=== PATIENT | female | born 1965 | race Caucasian/White ===

== ENCOUNTER 2017-09-23 10:05 | Outpatient (CLI) | payer MEDICAID ==
[~2017-09-23 10:05] MED LIST: BAC10T PO; CYCL-394 PO; NO HOME MEDS; ONDA4TAB12 PO
== END 2017-09-23 23:59 | disposition home or self-care (01) ==
LOC: RAD 10:05
PROVIDERS: ATTEND Nurse Practitioner
DX: R10.2 Pelvic and perineal pain (principal)
CPT/HCPCS: 76856

== ENCOUNTER 2018-09-24 00:45 | Emergency (ER) | payer MEDICAID ==
[~2018-09-24] VITALS: Ht 165.1 cm; Wt 63.1 kg
[2018-09-24 00:51] VITALS: BP 130/83
== END 2018-09-24 08:32 | disposition left against medical advice (07) ==
LOC: ER 00:46
DX: R10.9 Unspecified abdominal pain (principal); Z53.21 Procedure and treatment not carried out due to patient leaving prior to being seen by health care provider

== ENCOUNTER 2023-10-07 09:19 | Inpatient (IN) | payer MEDICAID ==
[~2023-10-07] VITALS: Ht 165.1 cm; Wt 76.8 kg
[2023-10-07 10:20] LABS: ALBUMIN 3.8 G/DL (3.4-5.0); ANION GAP 10 (8-16); BLOOD UREA NITROGEN 17 MG/DL (7-18); BUN/CREATININE RATIO 23.3 (10.0-20.0); CALCIUM 9.6 MG/DL (8.5-10.1); CHLORIDE 101 MMOL/L (99-107); CREATININE 0.73 MG/DL (0.40-0.90); GLUCOSE 395 MG/DL (70-104); POTASSIUM 3.9 MMOL/L (3.5-5.1); SODIUM 137 MMOL/L (135-145); TOTAL CARBON DIOXIDE 26.1 MMOL/L (24-32); eCRCL 75 ML/MIN; eGFR 82 ML/MIN
[2023-10-07 10:22] LABS: APTT 27 SECONDS (22-32)
[2023-10-07 10:36] LABS: INR 0.9 INR
[2023-10-07 10:42] LABS: BASOPHILS % (AUTO) 0.6 % (0-1); EOSINOPHILS # (AUTO) 0.2 X10'3 (0-0.9); EOSINOPHILS % (AUTO) 2.8 % (0-6); HEMATOCRIT 46.3 % (35.0-45.0); LYMPHOCYTES # (AUTO) 1.7 X10'3 (1.1-4.8); LYMPHOCYTES % (AUTO) 24.5 % (21-51); MEAN CORPUSCULAR HGB CONC 34.6 g/dL (33.0-36.5); MEAN CORPUSCULAR VOLUME 89.7 FL (78-98); MEAN PLATELET VOLUME 8.8 FL (7.4-10.4); MONOCYTES # (AUTO) 0.3 X10'3 (0-0.9); MONOCYTES % (AUTO) 4.6 % (2-12); NEUTROPHILS # (AUTO) 4.8 X10'3 (1.8-7.7); NEUTROPHILS % (AUTO) 67.5 % (42-75); PLATELET COUNT 195 X10'3 (140-440); RED BLOOD COUNT 5.17 X10'6 (4.20-5.60); RED CELL DISTRIBUTION WIDTH 13.9 % (11.5-14.5); WHITE BLOOD COUNT 7.1 X10'3 (4.5-11.0)
[2023-10-07] MEDS ORDERED: iohexol 350MG/ML 100ml bottle IV ONE (11:30)
[2023-10-07] MEDS ORDERED: magnesium 4gm in 100ml NS 100 ML IV PRN (12:25)
[2023-10-07] MEDS ORDERED: magnesium Cl slow-release 64mg tablet PO PRN (12:25)
[2023-10-07] MEDS ORDERED: magnesium hydroxide 30ml (MOM) UD suspension PO PRN (12:25)
[2023-10-07] MEDS ORDERED: magnesium 2GM in 50ml NS 50 ML IV PRN (12:25)
[2023-10-07] MEDS ORDERED: mag hydrox/Alum hydrox/simeth 30ml oral suspension PO PRN (12:25)
[2023-10-07] MEDS ORDERED: ondansetron/PF 4mg/2ml inj IV PRN (12:25)
[2023-10-07] MEDS ORDERED: potassium Cl 40MEQ/1/2NS 520ml 520 ML IV PRN (12:25)
[2023-10-07] MEDS ORDERED: potassium Cl 20 mEq SR tablet PO PRN ×2 (12:25)
[2023-10-07] MEDS ORDERED: acetaminophen 325mg tablet PO PRN (12:25)
[2023-10-07] MEDS: insulin regular, human 10 units/0.1 ml syringe IV ONE (12:34)
[2023-10-07] MEDS ORDERED: DEXTROSE 15 GM of carb/4 tabs (each vial/BOTTLE has 4 tablets) PO PRN ×2 (12:45)
[2023-10-07] MEDS ORDERED: dextrose 50%-water 50ml dispensing syringe IV PRN ×2 (12:45)
[2023-10-07] MEDS ORDERED: glucagon, human recombinant 1mg kit SUBCUT PRN (12:45)
[2023-10-07 13:05] LABS: BILIRUBIN,URINE NEGATIVE (Neg); CLARITY,URINE SLIGHTLY CLOUDY (Clear); COLOR,URINE YELLOW (Yellow); GLUCOSE, URINE >=1000 mg/dl (Neg); KETONES,URINE NEGATIVE (Neg); LEUKOCYTE ESTERASE ,URINE NEGATIVE (Neg); NITRITES, URINE NEGATIVE (Neg); OCCULT BLOOD,URINE NEGATIVE (Neg); PH,URINE 5.5 (4.8-8.0); PROTEIN,URINE NEGATIVE (Neg); UROBILINOGEN,URINE 0.2 E.U/dL (0.2-1.0)
[2023-10-07 13:10] LABS: UA COLLECTION TYPE CLN CATCH MIDSTREAM
[2023-10-07 13:11] LABS: BACTERIA,URINE 2+ /HPF (Neg); SQUAMOUS EPITHELIAL CELL,UR MANY /LPF (FEW); WBC,URINE 0-4 /HPF (0-4)
[2023-10-07 13:12] LABS: RBC,URINE 0-2 /HPF (0-2); YEAST FEW /HPF (NEGATIVE)
[2023-10-07] MEDS: normal saline 1000ml 1,000 ML IV SCH (13:18)
[2023-10-07 13:21] LABS: URINE AMPHETAMINE SCREEN POSITIVE (Neg); URINE BARBITUATE SCREEN NEGATIVE (Neg); URINE BENZODIAZEPINES SCREEN NEGATIVE (Neg); URINE CANNABINOID SCREEN POSITIVE (Neg); URINE COCAINE SCREEN NEGATIVE (Neg); URINE METHADONE SCREEN NEGATIVE (Neg); URINE OPIATE SCREEN NEGATIVE (Neg); URINE PHENCYCLIDINE SCREEN NEGATIVE (Neg)
[2023-10-07 16:20] VITALS: BP 118/84; PULSE 76; RESP 16; TEMP 98.2; O2SAT 95
[2023-10-07 18:00] VITALS: BP 122/82; PULSE 85; RESP 17; TEMP 97.9; O2SAT 97
[2023-10-07 20:00] VITALS: RESP 18; O2SAT 96
[2023-10-07] MEDS: K and/or MAG REPLACEMENT MC SCH (20:00)
[2023-10-07] MEDS: atorvastatin 20mg tablet PO SCH (21:54)
[2023-10-07] MEDS: enoxaparin 40mg/0.4ml syringe SQ SCH (21:54)
[2023-10-07 22:00] VITALS: BP 129/75; PULSE 78; RESP 18; TEMP 98.2; O2SAT 99
[2023-10-07] MEDS: insulin glargine (Lantus) pen - multi-dose SQ SCH (23:16)
[2023-10-07] MEDS: insulin Lispro (HumaLOG) vial - multi-dose SQ SCH (23:18)
[2023-10-08] VITALS (11 sets, daily range): BP systolic 107–113; BP diastolic 64–79; PULSE 62–91; RESP 16–18; TEMP 97.5–98.3; O2SAT 95–99
[2023-10-08] MEDS: aspirin 81mg, enteric-coated 1 TAB TABLET.DR PO SCH (07:45)
[2023-10-08] MEDS: nicotine 7mg patch - 24hr TD SCH (07:48)
[2023-10-08 08:03] LABS: BASOPHILS % (AUTO) 0.6 % (0-1); EOSINOPHILS # (AUTO) 0.2 X10'3 (0-0.9); EOSINOPHILS % (AUTO) 3.7 % (0-6); HEMATOCRIT 41.2 % (35.0-45.0); LYMPHOCYTES # (AUTO) 1.7 X10'3 (1.1-4.8); LYMPHOCYTES % (AUTO) 33.7 % (21-51); MEAN CORPUSCULAR HEMOGLOBIN 30.4 PG (27.0-31.0); MEAN CORPUSCULAR HGB CONC 34.1 g/dL (33.0-36.5); MEAN CORPUSCULAR VOLUME 89.3 FL (78-98); MEAN PLATELET VOLUME 8.5 FL (7.4-10.4); MONOCYTES # (AUTO) 0.3 X10'3 (0-0.9); MONOCYTES % (AUTO) 5.4 % (2-12); NEUTROPHILS # (AUTO) 2.9 X10'3 (1.8-7.7); NEUTROPHILS % (AUTO) 56.6 % (42-75); PLATELET COUNT 144 X10'3 (140-440); RED BLOOD COUNT 4.61 X10'6 (4.20-5.60); RED CELL DISTRIBUTION WIDTH 13.6 % (11.5-14.5); WHITE BLOOD COUNT 5.2 X10'3 (4.5-11.0)
[2023-10-08 08:19] LABS: ALANINE AMINOTRANSFERASE 25 U/L (12-78); ALBUMIN 3.1 G/DL (3.4-5.0); ALKALINE PHOSPHATASE 64 IU/L (46-116); ANION GAP 7 (8-16); ASPARTATE AMINO TRANSFERASE 9 U/L (10-37); BILIRUBIN,TOTAL 1.2 MG/DL (0.1-1.0); BLOOD UREA NITROGEN 16 MG/DL (7-18); BUN/CREATININE RATIO 26.2 (10.0-20.0); CALCIUM 8.8 MG/DL (8.5-10.1); CHLORIDE 104 MMOL/L (99-107); CHOL/HDL RATIO 7.2 (0.00-4.99); CHOLESTEROL 231 MG/DL (0-200); CREATININE 0.61 MG/DL (0.40-0.90); GLUCOSE 295 MG/DL (70-104); HDL CHOLESTEROL 32 MG/DL (35-60); LDL CHOLESTEROL 138 MG/DL (50-100); POTASSIUM 3.8 MMOL/L (3.5-5.1); SODIUM 136 MMOL/L (135-145); TOTAL CARBON DIOXIDE 25.1 MMOL/L (24-32); TOTAL PROTEIN 6.3 G/DL (6.4-8.2); TRIGLYCERIDES 231 MG/DL (20-135); eCRCL 89 ML/MIN; eGFR > 90 ML/MIN
[2023-10-08] MEDS: LORazepam 0.5 MG tablet PO PRN (11:51)
[2023-10-08] MEDS: atorvastatin 20mg tablet PO SCH (21:36)
[2023-10-09 03:00] VITALS: BP 114/81; PULSE 94; RESP 16; TEMP 97.9; O2SAT 99
[2023-10-09 06:00] VITALS: BP 98/63; PULSE 72; RESP 16; TEMP 98.3; O2SAT 96
[2023-10-09 07:48] LABS: BASOPHILS % (AUTO) 0.6 % (0-1); EOSINOPHILS # (AUTO) 0.1 X10'3 (0-0.9); EOSINOPHILS % (AUTO) 2.5 % (0-6); HEMATOCRIT 41.9 % (35.0-45.0); HEMOGLOBIN 14.6 g/dl (12.0-16.0); LYMPHOCYTES # (AUTO) 1.8 X10'3 (1.1-4.8); LYMPHOCYTES % (AUTO) 31.6 % (21-51); MEAN CORPUSCULAR HEMOGLOBIN 30.7 PG (27.0-31.0); MEAN CORPUSCULAR HGB CONC 34.9 g/dL (33.0-36.5); MEAN CORPUSCULAR VOLUME 88.1 FL (78-98); MEAN PLATELET VOLUME 8.4 FL (7.4-10.4); MONOCYTES # (AUTO) 0.3 X10'3 (0-0.9); MONOCYTES % (AUTO) 4.8 % (2-12); NEUTROPHILS # (AUTO) 3.5 X10'3 (1.8-7.7); NEUTROPHILS % (AUTO) 60.5 % (42-75); PLATELET COUNT 140 X10'3 (140-440); RED BLOOD COUNT 4.76 X10'6 (4.20-5.60); RED CELL DISTRIBUTION WIDTH 13.4 % (11.5-14.5); WHITE BLOOD COUNT 5.7 X10'3 (4.5-11.0)
[2023-10-09 08:00] VITALS: BP 98/63; PULSE 72; RESP 16; TEMP 98.3; O2SAT 96
[2023-10-09 08:00] LABS: ALANINE AMINOTRANSFERASE 25 U/L (12-78); ALBUMIN 3.2 G/DL (3.4-5.0); ALBUMIN/GLOBULIN RATIO 0.9 (1.1-1.5); ALKALINE PHOSPHATASE 61 IU/L (46-116); ANION GAP 9 (8-16); ASPARTATE AMINO TRANSFERASE 17 U/L (10-37); BILIRUBIN,TOTAL 1.2 MG/DL (0.1-1.0); BLOOD UREA NITROGEN 20 MG/DL (7-18); BUN/CREATININE RATIO 33.3 (10.0-20.0); CALCIUM 9.2 MG/DL (8.5-10.1); CHLORIDE 104 MMOL/L (99-107); GLUCOSE 216 MG/DL (70-104); POTASSIUM 3.6 MMOL/L (3.5-5.1); SODIUM 137 MMOL/L (135-145); TOTAL CARBON DIOXIDE 24.5 MMOL/L (24-32); TOTAL PROTEIN 6.7 G/DL (6.4-8.2); eCRCL 91 ML/MIN; eGFR > 90 ML/MIN
[2023-10-09 10:00] VITALS: BP 95/64; PULSE 89; RESP 18; TEMP 99; O2SAT 97
[2023-10-09 12:00] VITALS: BP 95/64; PULSE 89; RESP 18; TEMP 99; O2SAT 97
[2023-10-09] MEDS ORDERED: LANTUS SUBCUT (14:07)
[2023-10-09] MEDS ORDERED: ATOR20TA66 PO (14:07)
[2023-10-09] MEDS ORDERED: ASPI-1071 PO (14:07)
[2023-10-09] MEDS ORDERED: clopidogrel 75mg tablet PO SCH (20:00)
== END 2023-10-09 16:15 | disposition home or self-care (01) | DRG 45 ==
LOC: ER 09:19 → ED HOLD 12:31 → ORTHO 4S 16:38
PROVIDERS: ADMIT Internal Medicine; ATTEND Internal Medicine
PROC: B32T1ZZ Computerized Tomography (CT Scan) of Left Pulmonary Artery using Low Osmolar Contrast (ICD-10-PCS; principal; 2023-10-07)
PROC: B3201ZZ Computerized Tomography (CT Scan) of Thoracic Aorta using Low Osmolar Contrast (ICD-10-PCS; 2023-10-07)
PROC: B32S1ZZ Computerized Tomography (CT Scan) of Right Pulmonary Artery using Low Osmolar Contrast (ICD-10-PCS; 2023-10-07)
DX: I63.9 Cerebral infarction, unspecified (principal); E86.0 Dehydration; G81.94 Hemiplegia, unspecified affecting left nondominant side; E11.65 Type 2 diabetes mellitus with hyperglycemia; Z66 Do not resuscitate; R29.706 NIHSS score 6; F15.90 Other stimulant use, unspecified, uncomplicated; E78.00 Pure hypercholesterolemia, unspecified; F32.A Depression, unspecified; G89.29 Other chronic pain; F17.210 Nicotine dependence, cigarettes, uncomplicated; Z59.00 Homelessness unspecified; Z71.6 Tobacco abuse counseling
CPT/HCPCS: 36415; 70450; 70496; 70498; 70551; 71045; 80048; 80053; 80061; 80305; 81001; 82948; 83036; 85025; 85610; 85730; 87081; 93005; 93306; 97161; 97530; 99291; G0378; J1650; J1815; J3490; J7030; Q9967

== ENCOUNTER 2024-06-10 08:52 | Emergency (ER) | payer MEDICAID ==
[~2024-06-10] VITALS: Ht 165.1 cm; Wt 68.2 kg
[~2024-06-10 08:52] MED LIST changes: +ASPI-1071 PO; +ATOR20TA66 PO; -NO HOME MEDS; +ONDA-243 PO; -ONDA4TAB12 PO
[2024-06-10 09:51] LABS: BASOPHILS % (AUTO) 0.5 % (0-1); EOSINOPHILS # (AUTO) 0.1 X10'3 (0-0.9); EOSINOPHILS % (AUTO) 1.2 % (0-6); HEMATOCRIT 41.5 % (35.0-45.0); HEMOGLOBIN 14.2 g/dl (12.0-16.0); LYMPHOCYTES # (AUTO) 2.1 X10'3 (1.1-4.8); LYMPHOCYTES % (AUTO) 25.8 % (21-51); MEAN CORPUSCULAR HEMOGLOBIN 30.1 PG (27.0-31.0); MEAN CORPUSCULAR HGB CONC 34.2 g/dL (33.0-36.5); MEAN CORPUSCULAR VOLUME 87.9 FL (78-98); MEAN PLATELET VOLUME 7.7 FL (7.4-10.4); MONOCYTES # (AUTO) 0.5 X10'3 (0-0.9); MONOCYTES % (AUTO) 6.5 % (2-12); NEUTROPHILS # (AUTO) 5.3 X10'3 (1.8-7.7); PLATELET COUNT 205 X10'3 (140-440); RED BLOOD COUNT 4.72 X10'6 (4.20-5.60); RED CELL DISTRIBUTION WIDTH 13.6 % (11.5-14.5)
[2024-06-10 10:02] LABS: ALBUMIN 3.6 G/DL (3.4-5.0); ANION GAP 6 (8-16); BLOOD UREA NITROGEN 17 MG/DL (7-18); BUN/CREATININE RATIO 26.6 (10.0-20.0); CALCIUM 10.1 MG/DL (8.5-10.1); CHLORIDE 102 MMOL/L (99-107); CREATININE 0.64 MG/DL (0.40-0.90); GLUCOSE 237 MG/DL (70-104); POTASSIUM 4.1 MMOL/L (3.5-5.1); SODIUM 134 MMOL/L (135-145); TOTAL CARBON DIOXIDE 26.3 MMOL/L (24-32); eCRCL 84 ML/MIN; eGFR > 90 ML/MIN
[2024-06-10 10:09] LABS: APTT 24 SECONDS (22-32); PROTHROMBIN TIME 10.3 SECONDS (9.0-12.0)
[2024-06-10] MEDS ORDERED: QUET-1 PO (11:56)
[2024-06-10] MEDS: QUEtiapine 25mg tablet PO ONE (12:18)
[2024-06-10 12:21] VITALS: BP 141/91; PULSE 80; RESP 16; TEMP 97.5; O2SAT 95
== END 2024-06-10 12:22 | disposition home or self-care (01) ==
LOC: ER 08:53
DX: R20.0 Anesthesia of skin (principal); E78.00 Pure hypercholesterolemia, unspecified; E11.9 Type 2 diabetes mellitus without complications; F32.A Depression, unspecified; R79.1 Abnormal coagulation profile; Z79.82 Long term (current) use of aspirin; Z79.899 Other long term (current) drug therapy; Z98.890 Other specified postprocedural states
CPT/HCPCS: 36415; 70450; 71045; 80048; 82948; 85025; 85610; 85730; 93005; 99285

== ENCOUNTER 2025-01-16 14:47 | Emergency (ER) | payer MEDICAID ==
[~2025-01-16] VITALS: Ht 165.1 cm; Wt 70.0 kg
--- NOTE | 2025-01-16 14:58 | Physician Documentation ---
History of Present Illness ~ Chief Complaint: Heat Related Stated Complaint: HEAT STROKE Time Seen by MD: 14:51 Primary Medical Doctor: [facility] HPI This 59-year-old female who was brought to the emergency department per EMS after her sister called 911 because she reported that she was overheated after walking to her sister's house. On presentation, the patient does report some g eneralized abdominal pain, nausea, and reports reduced urine output today. Medication Reconciliation Allergies: Coded Allergies: No Known Allergies (Unverified , 01/16/25) Scheduled Aspirin (Ecotrin*), 1 TAB PO DAILY Atorvastatin Calcium (Atorvastatin Calcium), 40 MG PO HS Baclofen* (Lioresal*), 10 MG PO TID Cyclobenzaprine HCl (Cyclobenzaprine HCl), 10 MG PO TID PRN MUSCLE SPASM Scheduled PRN ONDANSETRON ODT 4mg tablet (Ondansetron Odt), 1 TABLET PO Q6H PRN for nausea/vomiting ONDANSETRON ODT 4mg tablet (Ondansetron Odt), 1 TAB PO Q6H PRN PRN for nausea/vomiting Past Medical History Past Medical History: High Cholesterol, Diabetes, Chronic Pain, Depression Past Surgical History: , orthopedic surgeries Alcohol Use: None Drug Use: none Lives with: Spouse Lives In: Home Occupation: disabled Review of Systems ROS As stated above in the HPI, otherwise all systems are reviewed and negative. Physical Exam Physical Exam General: Alert, no apparent distress. HEENT: PERRL, EOMI, no injection, moist mucous membranes. Neck: Full range of motion. Respiratory: Lungs clear, no respiratory distress. Chest: No accessory muscle use. Cardiovascular: Regular rate and rhythm, no murmurs. Gastrointestinal: Soft, mildly TTP throughout, nondistended. Bowels sounds present. Extremities: Normal range of motion, no deformity. Neurologic: Oriented x4. Psychiatric: Normal mood and affect. Skin: Normal color, warm and dry. No edema, no ecchymosis. Progress Results/Orders Results/Orders Orders - SILVIA DEAN NP Urinalysis, Cult If Indicated (01/16/25 14:52) Normal Saline 1000ml (Sodium Chloride 10 (01/16/25 15:45) Completed Orders - SILVIA DEAN NP Normal Saline 1000ml (Sodium Chloride 10 (01/16/25 14:55) Cbc/Diff (01/16/25 14:52) CMP (01/16/25 14:52) Ondansetron Inj. (Zofran 4mg/2ml Vial) (01/16/25 14:55) Medications Received in ER Medications (Trade) Dose Ordered Sig/Sarah Route PRN Reason Start Time Stop Time Status Last Admin Dose Admin Sodium Chloride 1,000 ml @ 1,000 mls/hr ONCE ONCE IV 01/16/25 14:55 01/16/25 15:54 DC 01/16/25 15:04 1,000 MLS/HR Sodium Chloride 1,000 ml @ 1,000 mls/hr ONCE ONCE IV 01/16/25 15:45 01/16/25 16:44 01/16/25 15:49 1,000 MLS/HR Vital Signs 01/16/25 01/16/25 14:52 15:20 Temp 99.3 Pulse 100 Resp 18 16 B/P (MAP) 117/68 Pulse Ox 99 Laboratory Tests Test 01/16/25 15:05 White Blood Count 7.3 Red Blood Count 4.76 Hemoglobin 14.5 Hematocrit 41.4 Mean Corpuscular Volume 87.1 Mean Corpuscular Hemoglobin 30.4 Mean Corpuscular Hemoglobin Concent 34.9 Red Cell Distribution Width 13.7 Platelet Count 194 Mean Platelet Volume 8.4 Neutrophils (%) (Auto) 46.5 Lymphocytes (%) (Auto) 41.2 Monocytes (%) (Auto) 6.7 Eosinophils (%) (Auto) 4.8 Basophils (%) (Auto) 0.8 Neutrophils # (Auto) 3.4 Lymphocytes # (Auto) 3.0 Monocytes # (Auto) 0.5 Eosinophils # (Auto) 0.4 Basophils # (Auto) 0.1 CBC Comment Sodium Level 143 Potassium Level 3.7 Chloride Level 107 Carbon Dioxide Level 27.4 Anion Gap 9 Blood Urea Nitrogen 17 Creatinine 0.81 Estimated GFR/1.73 m2 72 BUN/Creatinine Ratio 21.0 H Glucose Level 260 H Calcium Level 9.7 Total Bilirubin 1.4 H Aspartate Amino Transf (AST/SGOT) 24 Alanine Aminotransferase (ALT/SGPT) 44 Alkaline Phosphatase 91 Total Protein 7.8 Albumin 3.9 Globulin 3.9 Albumin/Globulin Ratio 1.0 L Chemistry Comments Medical Decision Making Differential Diagnosis 59-year-old female presented to the emergency department per ambulance with concerns for being overheated after walking in the 105+ degree heat. She was hydrated with 2 L of normal saline and given ondansetron 4 mg IV for nausea. Her labs were all within normal limits. She then felt much improved and was appropriate for discharge home. She is encouraged to follow up with the primary care provider, stay: Hydrated, return if worse. She will be given ondansetron for use at home. Departure Time of Disposition: 15:55 Disposition: HOME / SELF CARE / HOMELESS Impression: Primary Impression: Heat exhaustion Condition: Stable Discharge Instructions: Heat Illness Additional Instructions: You were hydrated and given nausea medication in the ER. Your labs were all within normal limits. Stay cool and hydrated. Return if worse. Referrals: NO PRIMARY CARE PROVIDER (PCP) Prescriptions ONDANSETRON ODT 4mg tablet (ONDANSETRON ODT) 4 Mg Tab.rapdis 1 TAB PO Q6H PRN PRN for nausea/vomiting for 4 Days, #16 TAB 0 Refills Prov: SILVIA DEAN NP 01/16/25 Education Educated: Patient Educated regarding: diagnosis, treatment, prognosis, need for follow up Signature Scribe Signature: no scribe Attestation: The note accurately reflects work and decisions made by me.Silvia Castro NP 01/16/25 16:02 SILVIA DEAN NP Jan 16, 2025 14:58
[2025-01-16] MEDS: normal saline 1000ml 1,000 ML IV ONE ×2 (15:04→15:49)
[2025-01-16] MEDS: ondansetron/PF 4mg/2ml inj IV ONE (15:05)
[2025-01-16 15:38] LABS: ALANINE AMINOTRANSFERASE 44 U/L (12-78); ALBUMIN 3.9 G/DL (3.4-5.0); ALKALINE PHOSPHATASE 91 IU/L (46-116); ANION GAP 9 (8-16); ASPARTATE AMINO TRANSFERASE 24 U/L (10-37); BILIRUBIN,TOTAL 1.4 MG/DL (0.1-1.0); BLOOD UREA NITROGEN 17 MG/DL (7-18); CALCIUM 9.7 MG/DL (8.5-10.1); CHLORIDE 107 MMOL/L (99-107); CREATININE 0.81 MG/DL (0.40-0.90); GLUCOSE 260 MG/DL (70-104); POTASSIUM 3.7 MMOL/L (3.5-5.1); SODIUM 143 MMOL/L (135-145); TOTAL CARBON DIOXIDE 27.4 MMOL/L (24-32); TOTAL PROTEIN 7.8 G/DL (6.4-8.2); eCRCL 66 ML/MIN; eGFR 72 ML/MIN
[2025-01-16 15:39] LABS: BASOPHILS # (AUTO) 0.1 X10'3 (0-0.2); BASOPHILS % (AUTO) 0.8 % (0-1); EOSINOPHILS # (AUTO) 0.4 X10'3 (0-0.9); EOSINOPHILS % (AUTO) 4.8 % (0-6); HEMATOCRIT 41.4 % (35.0-45.0); HEMOGLOBIN 14.5 g/dl (12.0-16.0); LYMPHOCYTES % (AUTO) 41.2 % (21-51); MEAN CORPUSCULAR HEMOGLOBIN 30.4 PG (27.0-31.0); MEAN CORPUSCULAR HGB CONC 34.9 g/dL (33.0-36.5); MEAN CORPUSCULAR VOLUME 87.1 FL (78-98); MEAN PLATELET VOLUME 8.4 FL (7.4-10.4); MONOCYTES # (AUTO) 0.5 X10'3 (0-0.9); MONOCYTES % (AUTO) 6.7 % (2-12); NEUTROPHILS # (AUTO) 3.4 X10'3 (1.8-7.7); NEUTROPHILS % (AUTO) 46.5 % (42-75); PLATELET COUNT 194 X10'3 (140-440); RED BLOOD COUNT 4.76 X10'6 (4.20-5.60); RED CELL DISTRIBUTION WIDTH 13.7 % (11.5-14.5); WHITE BLOOD COUNT 7.3 X10'3 (4.5-11.0)
[2025-01-16] MEDS ORDERED: ONDA-243 PO (15:56)
[2025-01-16 16:09] LABS: BILIRUBIN,URINE NEGATIVE (Neg); CLARITY,URINE SLIGHTLY CLOUDY (Clear); COLOR,URINE YELLOW (Yellow); GLUCOSE, URINE 500 mg/dl (Neg); KETONES,URINE NEGATIVE (Neg); LEUKOCYTE ESTERASE ,URINE TRACE (Neg); NITRITES, URINE NEGATIVE (Neg); OCCULT BLOOD,URINE NEGATIVE (Neg); PROTEIN,URINE NEGATIVE (Neg); UROBILINOGEN,URINE 0.2 E.U/dL (0.2-1.0)
[2025-01-16 16:14] LABS: UA COLLECTION TYPE CLN CATCH MIDSTREAM
[2025-01-16 16:15] LABS: BACTERIA,URINE 3+ /HPF (Neg); MUCUS STRANDS NONE SEEN /LPF (Neg); RBC,URINE NONE SEEN /HPF (0-2); SQUAMOUS EPITHELIAL CELL,UR MODERATE /LPF (FEW)
[2025-01-16 16:48] VITALS: BP 113/69; PULSE 78; RESP 16; TEMP 99.3; O2SAT 99
== END 2025-01-16 16:54 | disposition home or self-care (01) ==
LOC: ER 14:47
DX: T67.5XXA Heat exhaustion, unspecified, initial encounter (principal); R10.84 Generalized abdominal pain; R11.0 Nausea; F32.A Depression, unspecified; E11.9 Type 2 diabetes mellitus without complications; E78.00 Pure hypercholesterolemia, unspecified; Z79.82 Long term (current) use of aspirin; X30.XXXA Exposure to excessive natural heat, initial encounter; Y93.89 Activity, other specified; Y92.89 Other specified places as the place of occurrence of the external cause; Y99.8 Other external cause status
CPT/HCPCS: 36415; 80053; 81001; 85025; 87088; 96360; 96361; 99283; J7030

== ENCOUNTER 2025-06-12 04:04 | Emergency (ER) | payer MEDICAID ==
[~2025-06-12] VITALS: Ht 165.1 cm; Wt 67.7 kg
[2025-06-12 04:11] VITALS: BP 120/80; PULSE 96; RESP 16; TEMP 97.8; O2SAT 100
== END 2025-06-12 07:13 | disposition left against medical advice (07) ==
LOC: ER 04:05
DX: R10.31 Right lower quadrant pain (principal); Z53.21 Procedure and treatment not carried out due to patient leaving prior to being seen by health care provider
CPT/HCPCS: 99281